=== PATIENT | male | born 1935 | race Caucasian/White ===

== ENCOUNTER 2018-06-27 08:49 | Observation (INO) ==
[2018-06-27] MEDS ORDERED: KETOROLAC 30 MG/1 ML VIAL IV STA (09:18)
[2018-06-27 09:46] LABS: Basophils # 0.1 10*3/uL (0.0-0.2); Basophils % 0.6 % (0.0-0.8); Eosinophils # 0.2 10*3/uL (0.0-0.87); Eosinophils % 2.8 % (0.00-10.9); Hematocrit 48.3 VOL% (42.0-52.0); Hemoglobin 15.5 GM/DL (14.0-18.0); Immature Granulocytes % 0.3 %; Immature Granulocytes Absolute 0.02 #; Lymphocytes # 1.7 10*3/uL (1.4-4.0); Lymphocytes % 20.8 % (21.2-54.2); Mean Corpuscular HGB Conc 32.1 GM/DL (32-36); Mean Corpuscular Hemoglobin 31 PG (27-34); Mean Corpuscular Volume 97.4 FL (87-102); Mean Platelet Volume 10.9 FL (9.6-12.0); Monocytes # 0.6 10*3/uL (0.11-0.8); Monocytes % 7.9 % (1.7-12.7); Neutrophils # 5.4 10*3/uL (1.4-7.4); Neutrophils % 67.6 % (38.7-73.9); Platelet Count 243 T/CUMM (130-400); Red Blood Count 4.96 MC/CUMM (3.8-5.5); Red Cell Distribution Width 13.4 % (9.3-17.3)
[2018-06-27 09:52] LABS: Apearance,Urine CLEAR (Clear); Bilirubin,Urine Negative (Negative); Blood, Urine Negative (Negative); Glucose,Urine (UA) Negative (Negative); Ketones,Urine Negative (Negative); Nitrite,Urine Negative (Negative); Protein,Urine Negative; RBC,Urine 2 /HPF (0-4); Urine Color Straw (Yellow); Urine Specific Gravity 1.005 (1.001-1.035); Urine Urobilinogen < 2.0 EU/DL (0.2-1.0); WBC,Urine 1 /HPF (0-6)
[2018-06-27 10:00] LABS: Calcium 8.9 MG/DL (8.5-10.1); Osmolality,Calculated 275.5 MOS/KG (273-304); Potassium 4.3 MMOL/L (3.5-5.1)
[2018-06-27 10:51] LABS: Sedimentation Rate-Westergren 15 MM/HR (0-20)
[2018-06-27] MEDS ORDERED: HYDROmorphone 2 MG/1 ML VIAL IV STA (11:13)
[2018-06-27] MEDS ORDERED: ONDANSETRON 4 MG/2 ML VIAL IV STA (11:13)
[2018-06-27] MEDS ORDERED: ONDANSETRON 4 MG/2 ML VIAL IV PRN (13:29)
[2018-06-27] MEDS ORDERED: DOCUSATE SODIUM 100 MG CAPSULE PO PRN (13:29)
[2018-06-27] MEDS ORDERED: ACETAMINOPHEN 325 MG TABLET PO PRN (13:29)
[2018-06-27] MEDS ORDERED: LACTULOSE 20 GM/30 ML UDCUP PO PRN (13:29)
[2018-06-27] MEDS: ASPIRIN 325 MG TABLET PO SCH (16:43)
[2018-06-27] MEDS: MECLIZINE 25 MG TABLET PO SCH ×2 (16:43→21:06)
[2018-06-27] MEDS: SODIUM CHLORIDE 0.45% 1,000 ML IV SCH (16:43)
[2018-06-27] MEDS ORDERED: ENOXAPARIN 40 MG/0.4 ML SYRINGE SUBCUT SCH (21:00)
[2018-06-27] MEDS: ALBUTEROL/IPRATROPIUM 3 ML NEB RESP TX PRN (23:52)
[2018-06-28] MEDS: SODIUM CHLORIDE 0.45% 1,000 ML IV SCH ×2 (00:15→09:04)
[2018-06-28 05:15] LABS: Basophils % 0.5 % (0.0-0.8); Eosinophils # 0.1 10*3/uL (0.0-0.87); Eosinophils % 1.9 % (0.00-10.9); Hematocrit 40.5 VOL% (42.0-52.0); Immature Granulocytes % 0.3 %; Immature Granulocytes Absolute 0.02 #; Lymphocytes # 2.5 10*3/uL (1.4-4.0); Lymphocytes % 33.4 % (21.2-54.2); Mean Corpuscular HGB Conc 32.1 GM/DL (32-36); Mean Corpuscular Hemoglobin 31 PG (27-34); Mean Corpuscular Volume 97.6 FL (87-102); Mean Platelet Volume 11.4 FL (9.6-12.0); Monocytes # 0.7 10*3/uL (0.11-0.8); Monocytes % 9.4 % (1.7-12.7); Neutrophils # 4.1 10*3/uL (1.4-7.4); Neutrophils % 54.5 % (38.7-73.9); Platelet Count 205 T/CUMM (130-400); Red Blood Count 4.15 MC/CUMM (3.8-5.5); Red Cell Distribution Width 13.5 % (9.3-17.3); White Blood Count 7.4 T/CUMM (4-12)
[2018-06-28 05:46] LABS: Calcium 8.3 MG/DL (8.5-10.1); Osmolality,Calculated 278.3 MOS/KG (273-304); Potassium 3.6 MMOL/L (3.5-5.1)
[2018-06-28 05:51] LABS: Risk Ratio 4.85; VLDL CHOLESTEROL 28.2 MG/DL
[2018-06-28] MEDS: ASPIRIN 325 MG TABLET PO SCH (09:04)
[2018-06-28] MEDS: MECLIZINE 25 MG TABLET PO SCH ×2 (09:04→15:13)
[2018-06-28] MEDS: ALBUTEROL/IPRATROPIUM 3 ML NEB RESP TX PRN (09:43)
[2018-06-28 13:00] LABS: ABG Base Excess 0.3 MMOL/L (-2.5-2.5); ABG HCO3 24.6 MMOL/L (20-26); ABG Oxygen Saturation 94.3 % (95-100); ABG PCO2 39.9 MM HG (35-48); ABG PH 7.404 (7.35-7.45); ABG PO2 71.1 MM HG (80-95); ABG TCO2 21.5 MMOL/L (23-27)
[2018-06-28 15:22] VITALS: BP 126/55
== END 2018-06-28 16:15 ==
LOC: SUATTDRO → N.ED 08:49 → N.EDINP 08:49 → SUATTDRO 13:08 → N.5E 15:15
PROVIDERS: ADMIT Internal Medicine; ATTEND Internal Medicine Nephrology